=== PATIENT | female | born 1995 | race African-American/Black ===

== ENCOUNTER 2018-05-21 19:19 | Emergency (ER) | payer OTHER ==
[~2018-05-21] VITALS: Ht 160 cm; Wt 77.1 kg
[~2018-05-21 19:19] MED LIST: AMOXICILLIN 50500 M1 PO; BACTRIM DS TAB1 EACH PO; CLOTRIMAZOLE-BE15 GM TP; DOXYCYCLINE 10100 MG PO; IBUPROFEN 200200 M1 PO; LORTAB 10 MG-3473 ML PO; MEDROLDOSEPACK PO; PREDNISONE 20 M20 MG PO; PREDNISONE50 MG PO; [UNRECOGNIZED DRUG - OTHER]
[2018-05-21] MEDS ORDERED: TIZANIDINE HCL4 MG PO (19:50)
[2018-05-21 20:07] VITALS: BP 132/85
== END 2018-05-21 20:12 | disposition home or self-care (01) ==
LOC: ER 19:19
DX: S16.1XXA Strain of muscle, fascia and tendon at neck level, initial encounter (principal); Z88.2 Allergy status to sulfonamides; Z88.1 Allergy status to other antibiotic agents; V89.2XXA Person injured in unspecified motor-vehicle accident, traffic, initial encounter; Y92.89 Other specified places as the place of occurrence of the external cause; Y93.89 Activity, other specified; Y99.8 Other external cause status